=== PATIENT | female | born 1965 | race Caucasian/White ===

== ENCOUNTER → 2016-12-25 | Outpatient (CLI) | payer BC, OTHER ==
[~2016-12-25] MED LIST: ALL DAY ALL1 MG/1 ML PO; DIOVAN HCT 1601 EACH PO; KEFLEX SUS250 MG/5 M PO; LACTULOSE10 GM/151 PO; LASIX PO; LORTAB ELIXIR 715 ML PO; MILK OF MAGNESI30 ML PO; MOTRIN SUS100 MG/5 M PO; VITAMIN C 500500 MG PO; ZYRTEC10 M3 PO; [UNRECOGNIZED DRUG - OTHER] PO
== END ==
LOC: US 12:52
DX: N99.81 Other intraoperative complications of genitourinary system (principal); Z98.890 Other specified postprocedural states; R93.422 Abnormal radiologic findings on diagnostic imaging of left kidney

== ENCOUNTER → 2021-07-26 | Outpatient (CLI) | payer BC ==
[~2021-07-26] MED LIST changes: +PERCOCET 5/325 T1 EA PO
== END ==
LOC: KOH-I 12:40
DX: J22 Unspecified acute lower respiratory infection (principal); R05.1 Acute cough; J44.1 Chronic obstructive pulmonary disease with (acute) exacerbation
CPT/HCPCS: 71046

== ENCOUNTER → 2021-08-07 | Outpatient (CLI) | payer BC | LOC: KOH-I 13:03 | DX: J44.1 Chronic obstructive pulmonary disease with (acute) exacerbation (principal); Z87.891 Personal history of nicotine dependence | CPT/HCPCS: 71250 ==

== ENCOUNTER → 2021-08-08 | Outpatient (CLI) | payer BC | LOC: HEART 5 15:10 | DX: J44.1 Chronic obstructive pulmonary disease with (acute) exacerbation (principal); J44.0 Chronic obstructive pulmonary disease with (acute) lower respiratory infection; J22 Unspecified acute lower respiratory infection; R05.1 Acute cough | CPT/HCPCS: 94010 ==